=== PATIENT | male | born 1965 | race Caucasian/White ===

== ENCOUNTER 2016-10-31 05:45 | Day surgery (SDC) | payer MEDICARE ==
--- NOTE | ~2016-10-31 | EGD ---
EGD REPORT [facility] [address] [place]. [id number] NAME: HOOD VASQUES : [birth year] STATUS : REG [facility] PAT#: [id number] AGE: 51 ADM/REG DATE : 10/31/16 MR#: [id number] REPORT SERV DATE: 10/31/16 DICTATED BY: TAMANNA BARLOW DATE: 10/31/16 REPORT STATUS : Draft [facility] DATE: 10/31/16 [facility] Patient Name: Hood Vasques Date of : 1965 Attending MD: TAMANNA BARLOW MD Procedure Date No Time: 10/31/2016 Procedure: Upper GI endoscopy Indications: Follow-up of acute gastric ulcer; Zantac 300mg bid. Patient Profile: Informed consent was obtained from the patient by me prior to the procedure. Risks, benefits, and alternatives were discussed including the risk of bleeding, perforation, infection, reaction to medicine, missed lesion, and cardiopulmonary complications. Referring MD: JAMILA ELLIS MD Medicines: Monitored Anesthesia Care Complications: No immediate complications. Procedure: Pre-Anesthesia Assessment: - ASA Grade Assessment: III - A patient with severe systemic disease. After obtaining informed consent, the endoscope was passed under direct vision. Throughout the procedure, the patient's blood pressure, pulse, and oxygen saturations were monitored continuously. The GIF [id number] was introduced through the mouth, and advanced to the duodenal bulb. The endoscope was withdrawn with careful examination all mucosal surfaces including retroflexion stomach. The upper GI endoscopy was accomplished without difficulty. The patient tolerated the procedure well. Findings: Patchy mildly erythematous mucosa was found in the duodenal bulb. The entire examined stomach was normal. Antrum normal. A medium amount of food (residue) was found in the gastric body. The esophagus and gastroesophageal junction were examined with white light. There was no visual evidence of Garcia's esophagus. The examined esophagus was normal. Impression: - Erythematous duodenopathy. - Normal stomach. - A medium amount of food (residue) in the stomach. - There is no endoscopic evidence of Garcia's esophagus. - Normal esophagus. Recommendation: - Patient has a contact number available for EGD REPORT [address] [id number] NAME: HOOD VASQUES : [birth year] STATUS : REG [facility] PAT#: [id number] AGE: 51 ADM/REG DATE : 10/31/16 MR#: [id number] REPORT SERV DATE: 10/31/16 DICTATED BY: TAMANNA BARLOW DATE: 10/31/16 REPORT STATUS : Draft TRANSCRIBED BY: [employer] DATE: 10/31/16 emergencies. The signs and symptoms of potential delayed complications were discussed with the patient. Return to normal activities tomorrow. Written discharge instructions were provided to the patient. - Regular diet. - Continue present medications. - Avoid NSAID's other than daily ASA. Procedure Code(s): --- Professional --- 57146, Esophagogastroduodenoscopy, flexible, transoral; diagnostic, including collection of specimen(s) by brushing or washing, when performed (separate procedure) Diagnosis Code(s): --- Professional --- K31.89, Other diseases of stomach and duodenum K25.3, Acute gastric ulcer without hemorrhage or perforation CPT copyright 2013 [employer]. All rights reserved. The codes documented in this report are preliminary and upon assistant professor of archaeology review may be revised to meet current compliance requirements. TAMANNA BARLOW MD 10/31/2016 7:20 AM This report has been signed electronically. Number of Addenda: 0 Note Initiated On: 10/31/2016 7:04 AM Scope Withdrawal Time 0 hours 0 minutes 0 seconds [address] [place] [phone]
[~2016-10-31 05:45] MED LIST: ADDERALL20 MG PO; APLENZIN PO; APTIOM PO; ASA5GR PO; ASAB PO; AVINZA30 PO; BROMFENAC OP; CRESTOR10 PO; DALMANE30 MG OR; DIOV80 PO; GLUCOSE TABS PO; GLUCPH PO; IBEROGAST PO; IMITREX100 MG PO; INDE60 PO; KLONO1 PO; LAMICTAL10 PO; LAMICTAL150 MG PO; LAMICTAL200 MG PO; LIBRAX PO; LINZESS 145 M145 MCG PO; LIPITOR10 PO; MAGOX4 PO; MOBIC15 MG PO; NUVIGIL250 MG PO; PERCOCET 10/3251 TAB PO; PEXEVA20 MG PO; PLAVIX PO; PREDFORTE OPH; PRILOSEC40 MG PO; PROSOM 2 MG TAB2 MG PO; RANITIDINE300 MG PO; SAPHRIS10 MG SL; SONATA10 MG PO; TOPAMAX100 PO; TRANSSCOP TOP; TREXAMET PO; V5 PO; VICTOZA SC; WELCHOL 625 MG625 MG PO; XANAX2 MG PO; [UNRECOGNIZED DRUG - OTHER] OP
== END 2016-10-31 23:59 | disposition home health service (06) ==
LOC: DMU 05:45
PROVIDERS: Internal Medicine Gastroenterology
PROC: 0DJ08ZZ Inspection of Upper Intestinal Tract, Via Natural or Artificial Opening Endoscopic (ICD-10-PCS; principal; 2016-10-31 09:00)
DX: K25.3 Acute gastric ulcer without hemorrhage or perforation (principal); I10 Essential (primary) hypertension; G47.33 Obstructive sleep apnea (adult) (pediatric); F90.9 Attention-deficit hyperactivity disorder, unspecified type; G43.909 Migraine, unspecified, not intractable, without status migrainosus; K31.89 Other diseases of stomach and duodenum; E78.00 Pure hypercholesterolemia, unspecified; M19.90 Unspecified osteoarthritis, unspecified site; F31.9 Bipolar disorder, unspecified; F41.1 Generalized anxiety disorder; Z88.8 Allergy status to other drugs, medicaments and biological substances; Z90.49 Acquired absence of other specified parts of digestive tract; Z87.891 Personal history of nicotine dependence; Z98.890 Other specified postprocedural states